=== PATIENT | male | born 1940 | race Caucasian/White ===

== ENCOUNTER 2018-03-05 12:34 | Emergency (ER) | payer MEDICARE ==
[2018-03-05 12:36] VITALS: BMI 26.4
[2018-03-05 12:46] VITALS: BP 123/78; PULSE 78; RESP 20; TEMP 98.6; O2SAT 98
[2018-03-05] MEDS ORDERED: Potassium Chloride 20 mEq ER Tab PO STA (13:14)
--- NOTE | 2018-03-05 13:20 | ED PDOC ---
HPI: General Adult Time Seen by Provider: 03/05/18 13:19 Chief Complaint (Nursing): Abnormal Labs Chief Complaint (Provider): ABNORMAL BLOODWORK History Per: Patient (77 Y/O MALE SCHEDULED FOR PROCEDURE WITH DR WILDE, NOTED TO HAVE LOW POTASSIUM TODAY ON BLOODWORK. DENEIS ANY COMPLAINTS. HAS H/O HTN AND IS ON ANTIHYPERTENSIVE UNSURE OF NAME.) Past Medical History Reviewed: Historical Data, Nursing Documentation, Vital Signs Vital Signs: Last Vital Signs Temp 98.6 F 03/05/18 12:39 Pulse 78 03/05/18 12:39 Resp 20 03/05/18 12:39 BP 123/78 03/05/18 12:39 Pulse Ox 98 03/05/18 12:39 - Medical History PMH: COPD, HTN, Hypercholesterolemia, Hypothyroidism Denies: Chronic Kidney Disease - Family History Family History: States: No Known Family Hx - Immunization History Hx Tetanus Toxoid Vaccination: Yes Hx Influenza Vaccination: Yes Hx Pneumococcal Vaccination: No - Home Medications Home Medications: Ambulatory Orders Medication Instructions Recorded Albuterol Sulfate [Ventolin Hfa] 18 gm PO DAILY PRN 03/04/18 Chlorthalidone [Hygroton] 25 mg PO DAILY 03/04/18 Ibuprofen [Motrin Tab] 600 mg PO TID PRN 03/04/18 Levothyroxine [Synthroid] 25 mcg PO DAILY 03/04/18 Nifedipine [Procardia Xl] 60 mg PO DAILY 03/04/18 Simvastatin 10 mg PO DAILY 03/04/18 Tamsulosin [Flomax] 0.4 mg PO DAILY 03/04/18 - Allergies Allergies/Adverse Reactions: Allergies Allergy/AdvReac Type Severity Reaction Status Date / Time naproxen Allergy RASH Verified 03/05/18 12:39 Review of Systems ROS Statement: Except As Marked, All Systems Reviewed And Found Negative Physical Exam - Reviewed Nursing Documentation Reviewed: Yes Vital Signs Reviewed: Yes - Physical Exam Appears: Positive for: Well, Non-toxic, No Acute Distress Head Exam: Positive for: ATRAUMATIC, NORMAL INSPECTION, NORMOCEPHALIC Skin: Positive for: Normal Color, Warm, DRY Eye Exam: Positive for: EOMI, Normal appearance, PERRL ENT: Positive for: Normal ENT Inspection Neck: Positive for: Normal, Painless ROM Cardiovascular/Chest: Positive for: Regular Rate, Rhythm Respiratory: Positive for: CNT, Normal Breath Sounds Gastrointestinal/Abdominal: Positive for: Normal Exam, Soft Back: Positive for: Normal Inspection Extremity: Positive for: Normal ROM Neurologic/Psych: Positive for: Alert, Oriented - Laboratory Results Result Diagrams: 03/05/18 18:16 - ECG O2 Sat by Pulse Oximetry: 98 - Progress ED Course And Treament: EKG: NO ACUTE CHANGES; NO ECTOPY D/W DR. WILDE WHO STATES HE WILL RESCHEDULE OR AFTER PATIENT HAS BEEN EVALUATED FOR HYPOKALEMIA. KDUR 60MEQ X DOSE KDRUN X 2 REPEAT POTASSIUM 3.9 Disposition - Clinical Impression Clinical Impression: Hypokalemia - Patient ED Disposition Is Patient to be Admitted: No - Disposition Disposition: Routine/Home Disposition Time: 18:51 Condition: FAIR Instructions: Hypokalemia (DC) Print Language: ARMENIAN
[2018-03-05] MEDS ORDERED: Potassium Chloride 20 mEq ER Tab PO ONE (13:21)
[2018-03-05] MEDS ORDERED: Potassium CL 10 MEQ/50 ML 0 ML ONE (13:24)
[2018-03-05] MEDS: Potassium CL 10mEq/100ml 100 ML IVPB SCH ×2 (13:39→15:03)
[2018-03-05 18:39] LABS: BLOOD UREA NITROGEN 15 mg/dl (9-20); GFR NON-AFRICAN AMERICAN > 60
--- NOTE | 2018-03-05 20:22 | CARD ---
APPROVED REPORT Date of service: 03/05/2018 EKG Measurement Heart [id number] <Conclusion> Normal sinus rhythm Minimal voltage criteria for LVH, may be normal variant Nonspecific ST and T wave abnormality Abnormal ECG
== END 2018-03-05 19:45 | disposition home or self-care (01) ==
LOC: H.ER 12:34
DX: E87.6 Hypokalemia (principal); E03.9 Hypothyroidism, unspecified; E78.00 Pure hypercholesterolemia, unspecified; I10 Essential (primary) hypertension; J44.9 Chronic obstructive pulmonary disease, unspecified
CPT/HCPCS: 80048; 83735; 93005; 99281; J3480

== ENCOUNTER 2018-03-18 13:11 | Day surgery (SDC) | payer MEDICARE, OTHER ==
[2018-03-18 14:05] VITALS: O2SAT 100
[2018-03-18] MEDS ORDERED: Sevoflurane - Inhalation Anesthetic Liq (250 ml) ONE (14:09)
[2018-03-18] MEDS ORDERED: Propofol 10 mg/ml Inj (20 ML) ONE (14:10)
[2018-03-18] MEDS ORDERED: cefTRIAXone (Rocephin) 1 gm Inj ONE (14:12)
[2018-03-18 14:26] LABS: BLOOD UREA NITROGEN 9 mg/dl (9-20); CALCIUM 9.3 mg/dL (8.4-10.2); GFR NON-AFRICAN AMERICAN > 60
[2018-03-18] MEDS ORDERED: Lactated Ringer's 1,000 ML IV ONE ×2 (14:53→18:00)
[2018-03-18] MEDS ORDERED: Sodium Chloride 0.9% 10 ML IV ONE (15:25)
[2018-03-18] MEDS ORDERED: ePHEDrine 50 mg/ml Inj ONE (15:25)
[2018-03-18] MEDS ORDERED: Dexamethasone 4 mg/1 ml IVP PRN (16:27)
[2018-03-18] MEDS ORDERED: HYDROmorphone 0.5 mg/0.5 ml ISec IVP PRN (16:27)
[2018-03-18 18:36] VITALS: RESP 18
[2018-03-18 19:10] VITALS: BP 148/78; PULSE 72; TEMP 98.2
--- NOTE | 2018-03-19 02:16 | OP ---
PROCEDURE DATE: 03/18/2018 PREOPERATIVE DIAGNOSIS: Benign prostatic hypertrophy, urinary retention. POSTOPERATIVE DIAGNOSIS: Benign prostatic hypertrophy, urinary retention. PROCEDURE: Cystoscopy with GreenLight laser of the prostate. DESCRIPTION OF PROCEDURE: The patient was placed on the operating room table in a dorsal lithotomy position. He was given general anesthesia. The area of the groin was draped and prepped. Under direct vision, I went into the urethra, into the bladder identifying the adenoma that needed to be resected. At this time, I deployed a laser fiber, lasered the distal portion of the resection and then began first with the middle lobe and then the left and right lateral lobes. There was brisk bleeding throughout the procedure. Estimated the blood loss to be about 150 mL, but I was able to resect the prostate with the laser. We used about 405,000 Joules of energy to affect the resection. At the end of the procedure, the urine was rather clear, only very light pink. I removed the laser scope, and then inserted a #[id number] three-way Castro. The initial outflow was bloody but then cleared immediately. The patient was taken from the operating room in good condition. Sun Alvarado MD
== END 2018-03-18 19:25 | disposition home or self-care (01) ==
LOC: H.OPSURG 13:11
PROVIDERS: ATTEND Urology
DX: N40.1 Benign prostatic hyperplasia with lower urinary tract symptoms (principal); J44.9 Chronic obstructive pulmonary disease, unspecified; E78.5 Hyperlipidemia, unspecified; I10 Essential (primary) hypertension; R33.8 Other retention of urine
CPT/HCPCS: 36415; 52649; 80048; J0696; J2001; J2405; J2704; J3010; J7030; J7120